=== PATIENT | male | born 1990 | race Caucasian/White ===

== ENCOUNTER 2018-09-22 15:19 | Emergency (ER) | payer SELFPAY ==
[~2018-09-22] VITALS: Ht 198.1 cm; Wt 86.2 kg
== END 2018-09-22 16:54 | disposition home or self-care (01) ==
LOC: ER 15:19
DX: M79.602 Pain in left arm (principal)
CPT/HCPCS: 73080; 73090; 99283-25

== ENCOUNTER 2020-08-22 16:43 | Inpatient (IN) | payer OTHER ==
[~2020-08-22] VITALS: Ht 195.6 cm; Wt 90.7 kg
[2020-08-22 17:09] LABS: BASOPHILS ABSOLUTE AUTO 0.07 K/mm3 (0.00-0.23); BASOPHILS PERCENT AUTO 0 % (0-2); EOSINOPHILS ABSOLUTE AUTO 0.09 K/mm3 (0.00-0.68); EOSINOPHILS PERCENT AUTO 0 % (0-6); Hematocrit 44.3 % (37.0-53.0); IMMATURE GRAN ABSOLUTE AUTO 0.15 K/mm3 (0.00-0.10); IMMATURE GRAN PERCENT AUTO 1 % (0-1); LYMPHOCYTES ABSOLUTE AUTO 2.44 K/mm3 (0.84-5.20); LYMPHOCYTES PERCENT AUTO 10 % (21-46); MONOCYTES ABSOLUTE AUTO 1.21 K/mm3 (0.16-1.47); MONOCYTES PERCENT AUTO 5 % (4-13); Mean Corpuscular HGB 29.8 pg (26.0-34.0); Mean Corpuscular HGB Conc 33.9 g/dL (31.5-36.5); Mean Corpuscular Volume 88 fL (80-100); Mean Platelet Volume 10.2 fL (9.1-12.4); NEUTROPHILS ABSOLUTE AUTO 20.25 K/mm3 (1.96-9.15); NEUTROPHILS PERCENT AUTO 84 % (41-73); Platelet Count 335 K/mm3 (150-400); RDW Standard Deviation 42.2 fL (35.1-46.3); Red Blood Cell Count 5.03 M/mm3 (4.30-5.90); White Blood Cell Count 24.21 K/mm3 (4.00-11.30)
[2020-08-22 17:23] LABS: International Normalized Ratio 0.99; Prothrombin Time Results 10.6 Sec (9.7-11.5)
[2020-08-22 17:31] LABS: Alanine Aminotransfer (ALT/SGP 29 U/L (12-78); Albumin/Globulin Ratio 1.3 (0.8-1.8); Alk Phos 55 U/L (50-136); Anion Gap 8 mmol/L (6-16); Aspartate Aminotrans (AST/SGOT 22 U/L (12-37); Beta HCG, Quantitative, Serum <1 mIU/mL (0-1); Bilirubin, Total 0.3 mg/dL (0.1-1.0); Blood Urea Nitrogen 11 mg/dL (8-24); CO2, Blood 22 mmol/L (21-32); Calcium, Blood 8.8 mg/dL (8.5-10.1); Chloride, Blood 111 mmol/L (98-108); Ethanol (Alcohol), Blood, Med 54 mg/dL; Globulin, Blood 3.1 g/dL (2.2-4.0); Glomerular Filtration Rate >60 (60-); Glucose, Blood 103 mg/dL (70-99); Potassium, Blood 3.7 mmol/L (3.5-5.5); Sodium, Blood 141 mmol/L (136-145); Total Protein, Blood 7.1 g/dL (6.4-8.2)
[2020-08-22] MEDS ORDERED: NAPR220 PO (18:05)
[2020-08-22] MEDS ORDERED: OMEP20ER PO (18:05)
[2020-08-22] MEDS ORDERED: BENADRYL25 MG PO (18:05)
[2020-08-22] MEDS ORDERED: CETI5 PO (18:05)
[2020-08-22 18:23] LABS: Influenza A, PCR NEGATIVE (NEGATIVE); Influenza B, PCR NEGATIVE (NEGATIVE); Resp Syncytial Virus, PCR NEGATIVE (NEGATIVE); SARS-Cov-2 (COVID-19) PCR, MMC NEGATIVE (NEGATIVE)
--- NOTE | 2020-08-22 22:14 | NUR ---
PT TO ICU 2 FROM OR @ 21:05. PT. ARRIVED ALERT, ORIENTED, C/O ABDOMINAL PAIN 12/30, GAVE 2 DOSES FENTANYL 25 MCG, SEE EMAR, PAIN RELIEVED. VSS. PT. ON ROOM AIR, LUNG SOUNDS GENERALLY CLEAR BUT DIMINISHED, INSTRUCTED TO COUGH/DEEP BREATHE WHEN PAIN BETTER. MULTIPLE ABRASIONS NOTED TO LEFT ARM, LEG, DRESSINGS IN PLACE FROM ED. CHEST TUBE TO SUCTION WHILE IN ICU, NO AIR LEAK NOTED. @ 21:55 PT. TRANSFERRED OUT TO ROOM 209, REPORT GIVEN TO YELENA OLIVEIRA. REVIEWED SYSTEMS, LABS, MEDS. BELONGINGS BROUGHT OVER BY . IT HAS BEEN A PLEASURE CARING FOR THIS PATIENT.
[2020-08-23 03:44] LABS: Hemoglobin 13.8 g/dL (13.5-17.5); Mean Corpuscular HGB 30.1 pg (26.0-34.0); Mean Corpuscular HGB Conc 33.7 g/dL (31.5-36.5); Mean Corpuscular Volume 89 fL (80-100); Mean Platelet Volume 10.3 fL (9.1-12.4); Platelet Count 249 K/mm3 (150-400); RDW Coefficient Variation 13.3 % (11.7-14.2); RDW Standard Deviation 43.4 fL (35.1-46.3); Red Blood Cell Count 4.59 M/mm3 (4.30-5.90); White Blood Cell Count 25.77 K/mm3 (4.00-11.30)
[2020-08-23 04:00] LABS: Anion Gap 4 mmol/L (6-16); Blood Urea Nitrogen 13 mg/dL (8-24); Bun/Creatinine Ratio 12.9 (12.0-20.0); CO2, Blood 25 mmol/L (21-32); Chloride, Blood 111 mmol/L (98-108); Creatinine, Blood 1.01 mg/dL (0.60-1.20); Glomerular Filtration Rate >60 (60-); Glucose, Blood 154 mg/dL (70-99); Magnesium, Blood 1.9 mg/dL (1.6-2.4); Potassium, Blood 4.1 mmol/L (3.5-5.5); Sodium, Blood 140 mmol/L (136-145)
--- NOTE | 2020-08-23 08:04 | NUR ---
SHIFT SUMMARY: PT POD#1 FOR EX LAP WITH BOWEL RESECTION AND CHEST TUBE INSERTION. PLEUROVAC CONNECTED TO SUCTION WITH GENTLE BUBBLING. PT DENIES SOB. LUNGS CLEAR T/O. O2 STABLE ON RA. MAGDALENA INTACT AND COMPRESSED TO MIDLINE ABD. PT C/O PAIN AT CHEST TUBE INSERTION SITE AND CRAMPING ABD PAIN. PT BEING MEDICATED WITH 0.5MG DILAUDID, 5MG OXY AND TORADOL PER EMAR. PT TOLERATING CLEAR LIQ DIET. DENIES N/V. IVF AND IV ABX INFUSING PER ORDERS. MEDEL PATENT AND DRAINING YELLOW URINE. PLAN TO REMOVE TODAY. LACERATIONS TO LEFT ARM AND LEFT HIP COVERED WITH GAUZE DRESSINGS.
[2020-08-23 11:40] LABS: U Amphetamine Screen Not Detected; U Barbituate Screen Not Detected; U Benzodiazapine Screen Not Detected; U Buprenorphine Screen Not Detected; U Cannabinoids Screen Not Detected; U Cocaine Screen Not Detected; U Methadone Screen Not Detected; U Methamphetamine Screen Not Detected; U Opiates Screen DETECTED; U Oxycodone Screen Not Detected; U Phencyclidine Screen Not Detected; U Propoxyphene Screen Not Detected
--- NOTE | 2020-08-23 17:42 | NUR ---
PT UNABLE TO VOID. BS SHOWED 300 ML. PERFORMED STRAIGHT CATH AND DRAINED 450 ML DARK YELLOW URINE.
[2020-08-23 17:51] LABS: Source, Urine Catheter
--- NOTE | 2020-08-23 18:12 | NUR ---
SUMMARY PT PAINFUL T/O SHIFT. MEDICATED PER ORDERS FOR PAIN. DR FOFANA PLACED PT'S CHEST TUBE TO WATER SEAL. RESPIRATIONS AND 02 SATS STABLE ON RA. MAGDALENA DRESSING COMPRESSED. PT SAT UP ON EDGE OF BED W/'S ASSISTANCE BUT WAS UNABLE TO VOID AFTER MEDEL CATH DC'D PER ORDERS THIS AM. BS SHOWED 300 ML. PERFORMED STRAIGHT CATH AND DRAINED 450 ML DARK YELLOW URINE. PT NOW RESTING IN BED. CIWA NEGATIVE THIS AFTERNOON. SPOUSE ROOMING IN. CALL LIGHT IN REACH.
[2020-08-23 19:16] LABS: Appearance, Urine Clear (Clear); Bilirubin, Urine Neg (Neg); Blood, Urine 3+ (Neg); Color, Urine Amber (P-Yellow); Glucose Qualitative, Urine Neg (Neg); Ketones, Urine Neg (Neg); Leukocyte Esterase, Urine 1+ (Neg); Nitrite, Urine Neg (Neg); Protein, Urine 2+ (Neg); Urobilinogen, Urine NORM (Normal)
[2020-08-23 19:25] LABS: Amorphous Light (0-Heavy); Bacteria Few /hpf; Squamous Epithelial Cells Not Seen /hpf (Few); White Blood Cells, Urine 0-2 /hpf (0-5)
--- NOTE | 2020-08-24 07:34 | NUR ---
POD 2 S/P EX LAP+RESECTION. PT VSS T/O NIGHT. MAGDALENA DRESSING CDI. BT MORE HYPO THIS AM, PT REP NO FLATUS, HAD 2 EPISODES OF EMESIS. EMESIS APPEARS TO BE CLEAR LIQ PO, NO BLOOD/COFFEE GROUNDS NOTED. CHEST TUBE TO WATER SEAL, NO CREPITUS NOTED. SATS >90% ON RA, PT REP PAIN W/DEEP BREATHS. CXR COMPLETED THIS AM. PT UNABLE TO VOID, BLADDER SCAN 470 THIS AM, ATTEMPTED TO PLACE STRAIGHT CATH, PT BEGAN TO VOID DURING CATH PLACEMENT. PT UP OOB FOR LINNEN CHANGE, IS VERY PAINFUL W/MVMT, STATES PAIN MOSTLY IN LEFT SIDE AT CHEST TUBE SITE. PAIN MGD PER EMAR, PT DECLINING NARCOTIC PAIN MEDS THIS AM. IN ROOM T/O NIGHT, ASSISTING W/PT NEEDS. IVF CONT R/T MIN PO INTAKE. REPORT GIVEN TO DAY RN.
--- NOTE | 2020-08-24 18:09 | NUR ---
SUMMARY PT HAD ONE EPISODE OF EMESIS THIS AM. REPORTED NAUSEA T/O FIRST HALF OF DAY. HAS SINCE PASSED FLATUS AND REPORTED NAUSEA IS IMPROVING. AMBULATED IN BERRY W/SPOUSE TWICE. SAT UP IN RECLINER. VOIDED THIS AFTERNOON. DR FOFANA DC'D CHEST TUBE THIS SHIFT. CHANGED DRESSINGS TO LUE AND L HIP.
--- NOTE | 2020-08-24 18:23 | NUR ---
PT GAVE STUDENT NURSE PERMISSION FOR CARE ON 08/24/20 AT 0700.
--- NOTE | 2020-08-25 07:47 | NUR ---
POD 3 S/P EX LAP+RESECTION. PT HAD MUCH BETTER NIGHT, PT REP PAIN MINIMAL, MGD W/TORADOL. PT HAD NO C/O N/V, IS PASSING FLATUS. PT IS VOIDING URINE W/O DIFFICULTY. DRESSINGS WNL. LUNGS CLEAR, PT USING I/S. PT AMB W/SBA, HEATHER WELL. IVF CONT PER ORDERS. BEDSIDE REPORT GIVEN TO TANK Estrada RN.
--- NOTE | 2020-08-25 17:09 | NUR ---
SHIFT SUMMARY PT WAS TRANSITIONED TO REG DIET; NOT MUCH APPETITE BUT TAKING IN PO FLUIDS FAIRLY WELL. SL TODAY. UP IN HALLWAYS & CHAIR. HAD BM. C/O CRAMPING LIKE PAINS THAT HE FEELS ARE GAS PAINS.
--- NOTE | 2020-08-26 04:24 | NUR ---
SHIFT SUMMARY: PT S/P SMALL BOWEL RESECTION. MIDLINE MAGDALENA INTACT AND COMPRESSED. PT REPORTS A TOLERABLE LEVEL OF PAIN IN ABD. PT MOSTLY C/O NAUSEA THIS SHIFT. EMESIS X2. GREEN IN COLOR. SPOKE WITH DR. CAVAZOS WHO RECOMMENDS NG TUBE PLACEMENT IF NAUSEA UNABLE TO SUBSIDE WITH ZOFRAN. PT GIVEN 4MG OF ZOFRAN LAST NIGHT AND DENIES N/V SINCE. PT REPORTS PASSING SOME FLATUS. PT EDUCATED ON BOWEL REST WHILE FELLING NAUSEOUS. PT ENCOURAGED TO TAKE SHORT FREQ WALKS. PT CURRENTLY APPEARS TO BE RESTING. INDEPENDENT IN ROOM. VOIDING WELL. DENIES SOB AT REST AND WITH ACTIVITY.
[2020-08-26 04:54] LABS: Hematocrit 39.6 % (37.0-53.0); Hemoglobin 13.4 g/dL (13.5-17.5); Mean Corpuscular HGB Conc 33.8 g/dL (31.5-36.5); Mean Corpuscular Volume 89 fL (80-100); Mean Platelet Volume 10.5 fL (9.1-12.4); Platelet Count 264 K/mm3 (150-400); RDW Coefficient Variation 12.6 % (11.7-14.2); RDW Standard Deviation 41.4 fL (35.1-46.3); Red Blood Cell Count 4.46 M/mm3 (4.30-5.90); White Blood Cell Count 8.44 K/mm3 (4.00-11.30)
--- NOTE | 2020-08-26 16:35 | NUR ---
EMESIS PT VOMITS 400MLS LIGHT GREEN FLUID. STATES HE WASN'T NAUSEATED BUT WAS CHOKING ON HIS PUTUM & CAUSED HIM TO GAG THEN PUKE.
--- NOTE | 2020-08-26 19:31 | NUR ---
SHIFT SUMMARY PT HAS STRUGGLED W/ NO APPETITE& NAUSEA. HAS NOT TRIED SOLIDS TODAY. SIPPING ON FLUIDS T/O DAY W/ 1 EPISODE OF EMESIS. UP IN HALLWAYS; IND IN ROOM. SPOUSE ATTENTIVE & LOVING.
--- NOTE | 2020-08-27 03:43 | NUR ---
SHIFT SUMMARY PT IS A/O X4, IND IN ROOM. S/P SMALL BOWEL RESECTION POD#5 THIS AM. MAGDALENA IN PLACE MIDLINE, CDI/WNL. PT IS TAKING ZOFRAN PRN FOR NAUSEA; HAS HAD SOME NAUSEA BUT NO EMESIS SO FAR THIS SHIFT. TOLERATING PO FLUIDS. PT DENIES CHEST PAIN/PRESSURE AND SOB OVERNIGHT. AT BEDSIDE T/O THE SHIFT. PT HAS DENIED PAIN OVERNIGHT. RESTING IN BED AT THIS TIME, CALL LIGHT IN REACH.
[2020-08-27 09:53] LABS: Hematocrit 39.3 % (37.0-53.0); Hemoglobin 13.1 g/dL (13.5-17.5); Mean Corpuscular HGB 29.6 pg (26.0-34.0); Mean Corpuscular HGB Conc 33.3 g/dL (31.5-36.5); Mean Corpuscular Volume 89 fL (80-100); Mean Platelet Volume 10.4 fL (9.1-12.4); Platelet Count 298 K/mm3 (150-400); RDW Coefficient Variation 12.2 % (11.7-14.2); RDW Standard Deviation 39.7 fL (35.1-46.3); Red Blood Cell Count 4.43 M/mm3 (4.30-5.90)
[2020-08-27 10:08] LABS: Alanine Aminotransfer (ALT/SGP 23 U/L (12-78); Albumin, Blood 2.7 g/dL (3.4-5.0); Albumin/Globulin Ratio 0.7 (0.8-1.8); Alk Phos 37 U/L (50-136); Anion Gap 5 mmol/L (6-16); Aspartate Aminotrans (AST/SGOT 8 U/L (12-37); Bilirubin, Total 0.4 mg/dL (0.1-1.0); Blood Urea Nitrogen 17 mg/dL (8-24); Bun/Creatinine Ratio 19.5 (12.0-20.0); CO2, Blood 28 mmol/L (21-32); Calcium, Blood 8.5 mg/dL (8.5-10.1); Chloride, Blood 106 mmol/L (98-108); Creatinine, Blood 0.87 mg/dL (0.60-1.20); Globulin, Blood 3.8 g/dL (2.2-4.0); Glomerular Filtration Rate >60 (60-); Glucose, Blood 98 mg/dL (70-99); Sodium, Blood 139 mmol/L (136-145); Total Protein, Blood 6.5 g/dL (6.4-8.2)
--- NOTE | 2020-08-28 07:24 | NUR ---
SHIFT SUMMARY POD7 L THORACOSTOMY W/ SMALL BOWEL RESECTION, A/O X4, VSS, TOLERATING CLEARS, MULTIPLE BM'S W/ FLATUS, DENIES PAIN OTHER THAN W/ MOVEMENT, NO ACUTE EVENTS THIS SHIFT. CALL LIGHT IN REACH, REPORT GIVEN TO DAY RN.
[2020-08-28] MEDS ORDERED: ONDA4ODT MM (11:53)
[2020-08-28] MEDS ORDERED: ACET325 PO (12:29)
--- NOTE | 2020-08-28 12:51 | NUR ---
[id number] DISCHARGED TO HOME WITH
== END 2020-08-28 12:45 | disposition home or self-care (01) | DRG 957 ==
LOC: ER 16:43 → SURS 18:11 → ICUE 21:05 → SURS 22:02
PROVIDERS: Emergency Medicine; ADMIT Surgery
PROC: 0W9B30Z Drainage of Left Pleural Cavity with Drainage Device, Percutaneous Approach (ICD-10-PCS; principal; 2020-08-22 16:00)
PROC: 0DB80ZZ Excision of Small Intestine, Open Approach (ICD-10-PCS; 2020-08-22 16:00)
DX: S36.438A Laceration of other part of small intestine, initial encounter (principal); K65.9 Peritonitis, unspecified; S27.0XXA Traumatic pneumothorax, initial encounter; S36.039A Unspecified laceration of spleen, initial encounter; K56.7 Ileus, unspecified; V86.06XA Driver of dirt bike or motor/cross bike injured in traffic accident, initial encounter; Z20.822 Contact with and (suspected) exposure to COVID-19; Y92.9 Unspecified place or not applicable; K21.9 Gastro-esophageal reflux disease without esophagitis; J30.2 Other seasonal allergic rhinitis; S70.212A Abrasion, left hip, initial encounter; S40.812A Abrasion of left upper arm, initial encounter
CPT/HCPCS: 0241U; 36415; 71045; 71260; 73130; 74177; 80048; 80053; 81001; 83690; 83735; 84702; 85025; 85027; 85610; 86850; 86900; 86901; 87086; 88307; 90471; 90714; 96374-59; 96375-59; 96376; 99285-25; A9270; G0480; J1100; J1170; J1650; J1885; J2250; J2405; J2543; J2704; J3010; J7120; Q9967

== ENCOUNTER → 2020-09-17 | Outpatient (CLI) | payer OTHER ==
[~2020-09-17] MED LIST: ACET325 PO; BENADRYL25 MG PO; CETI5 PO; NAPR220 PO; OMEP20ER PO; ONDA4ODT MM
[2020-09-17 12:09] LABS: Source, Urine Clean Catch
[2020-09-17 13:21] LABS: Appearance, Urine Hazy (Clear); Bilirubin, Urine Neg (Neg); Blood, Urine 1+ (Neg); Color, Urine Yellow (P-Yellow); Glucose Qualitative, Urine Neg (Neg); Ketones, Urine 1+ (Neg); Leukocyte Esterase, Urine 1+ (Neg); Nitrite, Urine Neg (Neg); Protein, Urine Neg (Neg); Urobilinogen, Urine NORM (Normal)
[2020-09-17 13:39] LABS: Granular Casts 0-2 /lpf (0)
[2020-09-17 13:42] LABS: Amorphous Light (0-Heavy); Bacteria Mod /hpf; Squamous Epithelial Cells Not Seen /hpf (Few)
== END | disposition home or self-care (01) ==
LOC: LAB SHORT 12:08
PROVIDERS: Surgery
DX: R30.0 Dysuria (principal)
CPT/HCPCS: 81001; 87086

== ENCOUNTER 2023-11-18 06:12 | Day surgery (SDC) | payer BC ==
[~2023-11-18] VITALS: Ht 193 cm; Wt 101.5 kg
[2023-11-18] VITALS (9 sets, daily range): BP systolic 138–150; BP diastolic 88–99
[~2023-11-18 06:12] MED LIST changes: +MAGNESIUM PO
[2023-11-18] MEDS ORDERED: Lactated Ringer's 1,000 ML IV SCH (06:25)
[2023-11-18] MEDS ORDERED: ESOM20 PO (06:30)
--- NOTE | 2023-11-18 07:00 | NUR ---
Ambulatory in Day Surgery History, Chart, Medications and Allergies reviewed before start of procedure. Pre-Op teaching done. Pt verbalizes understanding. Patient States Post-Procedure ride home has been arranged.
[2023-11-18] MEDS ORDERED: Bupivacaine 0.5% HCl 5 MG/ML 30MLVIAL ONE (07:10)
[2023-11-18] MEDS ORDERED: propofoL 20 ML IV ONE (07:15)
[2023-11-18] MEDS ORDERED: FentaNYL Citrate 50 MCG/ML 5 ML Injection ONE (07:15)
[2023-11-18] MEDS ORDERED: Dexamethasone Sod Phos 10 MG/ML 1ML VIAL ONE (07:47)
[2023-11-18] MEDS ORDERED: Rocuronium Bromide 10 MG/ML 5ML Injection IV ONE (07:47)
[2023-11-18] MEDS ORDERED: Lidocaine HCl 2% 20 ML MDV ONE (07:47)
[2023-11-18] MEDS ORDERED: Ondansetron HCl 2 MG / ML 2ML Vial ONE (07:47)
[2023-11-18] MEDS ORDERED: Glycopyrrolate 0.2 MG/ML 5ML VIAL ONE (09:04)
[2023-11-18] MEDS ORDERED: Neostigmine Methylsulfate 5MG/5ML SYR ONE (09:04)
[2023-11-18] MEDS ORDERED: Ketorolac Tromethamine 30mg Vial ONE (09:22)
[2023-11-18] MEDS ORDERED: HYDROmorphone HCl/Pf 1MG SYR ONE (09:33)
[2023-11-18] MEDS ORDERED: FentaNYL Citrate 50 MCG/ML 2 ML Injection ONE (09:45)
[2023-11-18] MEDS ORDERED: HYDROcodone 5-APAP 325 TAB PO ONE (10:00)
--- NOTE | 2023-11-18 10:08 | NUR ---
PT TO DAY SURGERY STEP DOWN FROM PACU; BEDSIDE REPORT RECEIVED. PT IS AWAKE, ALERT AND ORIENTED; ABLE TO MOVE SELF IN BED. DRINKING APPLE JUICE. PT HAS 3 INCISION SITES THAT ARE CLOSED WITH EXOFIN AND ARE C/D/I.
--- NOTE | 2023-11-18 10:27 | NUR ---
TOLERATING PO FLUIDS AND CRACKERS WELL. ICE PACK TO ABD. Discharge instructions reviewed with patient. Patient verbalizes understanding. Copy given to patient to take home. Patient States Post-Procedure ride home has been arranged.
--- NOTE | 2023-11-18 10:46 | NUR ---
Patient up to Ambulate independently. Gait steady. Discharged via wheelchair to private car for ride home.
== END 2023-11-18 10:47 | disposition home or self-care (01) ==
LOC: ORSCMMR 06:12 → ORD 07:30 → ORSCMMR 07:30 → ORD 09:00 → ORSCMMR 10:47
PROVIDERS: Surgery
PROC: 8E0W4CZ Robotic Assisted Procedure of Trunk Region, Percutaneous Endoscopic Approach (ICD-10-PCS; principal; 2023-11-18 07:30)
PROC: 0WUF4JZ Supplement Abdominal Wall with Synthetic Substitute, Percutaneous Endoscopic Approach (ICD-10-PCS; principal; 2023-11-18 07:30)
DX: K43.0 Incisional hernia with obstruction, without gangrene (principal); K21.9 Gastro-esophageal reflux disease without esophagitis; Z79.899 Other long term (current) drug therapy; F17.290 Nicotine dependence, other tobacco product, uncomplicated
CPT/HCPCS: A9270; C1781; J1100; J1170; J1885; J2405; J2704; J2710; J3010; J7120